=== PATIENT | female | born 1975 | race Two or more races ===

== ENCOUNTER 2017-11-04 00:34 | Observation (INO) | payer OTHER ==
[2017-11-04] MEDS ORDERED: Aspirin TAB* 325 MG PO ONE (00:53)
[2017-11-04] MEDS ORDERED: Nitroglycerin 2% OINT* 1 GM PAK TOPICAL ONE (00:55)
[2017-11-04] MEDS ORDERED: Nitroglycerin 2% OINT* 1 GM PAK ONE (01:01)
[2017-11-04 01:06] LABS: ABS Basophils 0 10^3/ul (0-0.2); ABS Eosinophils 0.1 10^3/ul (0-0.6); ABS Lymphocytes 2.9 10^3/ul (1.0-4.8); ABS Monocytes 0.6 10^3/ul (0-0.8); ABS Neutrophils 3.7 10^3/ul (1.5-7.7); ABS Nucleated RBC 0 10^3/ul; Eosinophil % 1.1 % (0-6); Hematocrit 38 % (35-47); Hemoglobin 12.5 g/dl (12.0-16.0); Mean Corpuscular HGB Conc 33 g/dl (31-36); Mean Corpuscular Hemoglobin 25 pg (27-31); Mean Corpuscular Volume 75 fL (80-97); Mean Platelet Volume 8 um3 (7.4-10.4); Nucleated Red Blood Cells % 0; Platelet Count 256 10^3/ul (150-450); Red Blood Count 5.05 10^6/ul (4.0-5.4); Red Cell Distribution Width 15 % (10.5-15); White Blood Count 7.3 10^3/ul (3.5-10.8)
[2017-11-04 01:20] LABS: INR 0.86 (0.77-1.02)
[2017-11-04 01:25] LABS: EGFR Non-African American 106.1 (>60)
[2017-11-04] MEDS ORDERED: Ketorolac INJ* 30 MG/ML 1 ML VIAL IV PUSH ONE (03:35)
[2017-11-04] MEDS ORDERED: Ondansetron INJ* 2 MG/ML VIAL IV PRN (03:36)
[2017-11-04] MEDS ORDERED: Acetaminophen TAB* 325 MG PO PRN (03:36)
[2017-11-04] MEDS ORDERED: Al Hydrox/Mg Hydrox/Simet LIQ* 30 ML UDC PO PRN (03:36)
[2017-11-04] MEDS ORDERED: Acetaminophen TAB* 325 MG ONE (03:45)
[2017-11-04] MEDS: Heparin VIAL(*) 5000 UNITS/ML VIAL (FIVE THOUSAND) SUBCUT SCH ×2 (04:59→16:18)
--- NOTE | 2017-11-04 05:24 | HP ---
CC: [facility] HISTORY AND PHYSICAL: DATE OF ADMISSION: 11/04/17 TIME OF EVALUATION: 0300. PRIMARY CARE PHYSICIAN: [facility]. CHIEF COMPLAINT: Chest pain. HISTORY OF PRESENT ILLNESS: This is a 42-year-old female with a past medical history, states that she has had chest pain for the past year, has gotten worse over the past 2 to 3 months. She has a disabled daughter which she has to do a lot of heavy lifting. It got significantly worse tonight with inability to take a deep breath, feeling short of breath and then she felt very dizzy with her whole body shaking and her arms shaking and she felt very heavy, whole body was heavy. She states now recently the past few days every time she has exertional activity, she develops chest pain. She also has a headache. No fever, no chills. No changes in her weight. No URI symptoms. No nausea, vomiting, diarrhea, abdominal pain, or urinary symptoms. Otherwise, remaining review of systems is negative. In the emergency room, the patient had labs and imaging. She was given nitro, aspirin, and Tylenol, was referred to the hospitalist service for further evaluation. Currently, she is chest pain free. PAST MEDICAL HISTORY: History of carpal tunnel release in 2016. MEDICATIONS: Ibuprofen and Tylenol as needed. ALLERGIES: No known drug allergies. SOCIAL HISTORY: The patient lives at home with her and her 5 children. Her healthcare proxy is her . No tobacco, alcohol, or illicit drug use. Code status is full code. REVIEW OF SYSTEMS: A 14-point review of systems as mentioned in the HPI, otherwise negative. FAMILY HISTORY: Mother at age 43, unknown etiology. Father at age 62 from a GI bleed. PHYSICAL EXAMINATION GENERAL: No acute distress, resting comfortably with the daughter at the bedside. VITAL SIGNS: Temp 98.7, pulse rate 73, respiratory rate 14, oxygen saturation 100% on room air, and blood pressure 140/82. HEENT: Head: Normocephalic. Pupils equal and reactive, anicteric. Oropharynx : Mucous membranes are moist. NECK: Supple. No lymphadenopathy. RESPIRATORY: Diminished breath sounds. No wheezes, rhonchi, or rales. CARDIAC: Regular rate and rhythm. Systolic murmur more prominent at the right sternal base, prominent S2. ABDOMEN: Soft, nontender, and nondistended. EXTREMITIES: No clubbing, cyanosis, or edema. +2 DPs. NEUROLOGIC: Alert and oriented x3. No focal neurologic deficits. DIAGNOSTIC STUDIES/LAB DATA: White count 7.3, hemoglobin 12.5, hematocrit 38, platelets 256. INR is 0.86. D-dimer is less than 200. Sodium 134, potassium 3.2, chloride 103, bicarb 24, BUN 14, creatinine 0.62. Troponin is 0. BNP is 13. HCG is less than 0.6. EKG shows normal sinus rhythm with no ST changes. Chest x-ray, wet read is unremarkable. ASSESSMENT AND PLAN: This is a 42-year-old female with an unremarkable past medical history, who presents with exertional chest pain. 1. Chest pain. Assessment: The patient's chest pain is with exertion, now pleuritic pain and some shortness of breath. Currently, chest pain free, could be musculoskeletal related in the setting of heavy lifting of her disabled daughter; however, concerning that even when she is not lifting heavy and mopping that she develops a chest pain, it is not reproducible on exam. Her initial workup is unremarkable. She is low risk. Plan: We will admit her to the CDU unit to rule out acute coronary syndrome, put her on a treadmill stress test in the morning, trend her troponin, check her lipid panel. Continue on aspirin. We will give her a dose of Toradol now. 2. FEN. Keep her n.p.o. in case if she cannot tolerate the treadmill stress test and either nuclear. 3. DVT prophylaxis. The patient scores moderate risk. Placed on heparin subcu t.i.d. 4. Code status. Full code. PATIENT TIME: Greater than 45 minutes spent doing the history and physical, more than half the time was spent in direct patient contact. [id number] #: [id number] BRITNI
--- NOTE | 2017-11-04 06:25 | ED ---
Josefina Welsh Thomas, scribed for Jeramy Arroyo on 11/04/17 at 0059 . HPI Chest Pain - HPI Summary HPI Summary: This patient is a 42 year old F BIBA to ED with a chief complaint of left-sided chest pain since 2100 today. The patient rates the pain 6/10 in severity. Symptom aggravated by deep breaths. Symptoms alleviated by nothing. Patient reports SOB. Patient denies coughing. - History of Current Complaint Chief Complaint: EDChestPainROMI Time Seen by Provider: 11/04/17 00:47 Hx Obtained From: Patient Onset/Duration: Started Hours Ago, Still Present Timing: Constant, Lasting Hours Current Severity: Moderate Pain Intensity: 6 Pain Scale Used: 0-10 Numeric Chest Pain Location: Left Lateral Aggravating Factor(s): Deep Breaths Alleviating Factor(s): Nothing Associated Signs and Symptoms: Positive: Other: - Patient reports SOB. Patient denies coughing. - Allergy/Home Medications Allergies/Adverse Reactions: Allergies Allergy/AdvReac Type Severity Reaction Status Date / Time No Known Allergies Allergy Verified 05/14/16 10:57 PMH/Surg Hx/FS Hx/Imm Hx Endocrine/Hematology History: Denies: Hx Diabetes Cardiovascular History: Reports: Hx Hypertension - HX OF, CURRENTLY NOT ON MEDS Denies: Hx Congestive Heart Failure History: Denies: Hx Renal Disease Musculoskeletal History: Reports: Hx Tendonitis, Other Musculoskeletal History - CARPAL TUNNEL BILAT Sensory History: Reports: Hx Contacts or Glasses - GLASSES Denies: Hx Hearing Aid Opthamlomology History: Reports: Hx Contacts or Glasses - GLASSES Neurological History: Reports: Hx Headaches - HX OF HEADACHES - Surgical History Hx Anesthesia Reactions: No Infectious Disease History: No Infectious Disease History: Denies: Traveled Outside the [place] in Last 30 Days - Family History Known Family History: Negative: Cardiac Disease - Social History Alcohol Use: None Substance Use Type: Reports: None Smoking Status (MU): Never Smoked Tobacco Review of Systems Negative: Fever Positive: Chest Pain Positive: Shortness Of Breath. Negative: Cough All Other Systems Reviewed And Are Negative: Yes Physical Exam - Summary Physical Exam Summary: Appearance: Well appearing, no pain distress Skin: warm, dry, reflects adequate perfusion Head/face: normal Eyes: EOMI, SHAMEKA ENT: normal Neck: supple, non-tender Respiratory: CTA, breath sounds present, lungs clear Chest: Tenderness over left chest Cardiovascular: RRR, pulses symmetrical Abdomen: non-tender, soft Bowel: present Musculoskeletal: normal, strength/ROM intact Neuro: normal, sensory motor intact, A&Ox3 Triage Information Reviewed: Yes Vital Signs On Initial Exam: Initial Vitals Temp Pulse Resp BP Pulse Ox 98.7 F 83 16 134/85 98 11/04/17 00:40 11/04/17 00:40 11/04/17 00:40 11/04/17 00:40 11/04/17 00:40 Vital Signs Reviewed: Yes Diagnostics - Vital Signs Vital Signs Temp Pulse Resp BP Pulse Ox 11/04/17 00:40 98.7 F 92 23 134/85 98 - Laboratory Lab Results: Lab Results 11/04/17 11/04/17 11/04/17 Range/Units 00:46 00:46 00:46 WBC 7.3 (3.5-10.8) 10^3/ul RBC 5.05 (4.0-5.4) 10^6/ul Hgb 12.5 (12.0-16.0) g/dl Hct 38 (35-47) % MCV 75 L (80-97) fL MCH 25 L (27-31) pg MCHC 33 (31-36) g/dl RDW 15 (10.5-15) % Plt Count 256 (150-450) 10^3/ul MPV 8 (7.4-10.4) um3 Neut % (Auto) 49.9 (38-83) % Lymph % (Auto) 40.0 (25-47) % [place] % (Auto) 8.4 (1-9) % Eos % (Auto) 1.1 (0-6) % Baso % (Auto) 0.6 (0-2) % Absolute Neuts (auto) 3.7 (1.5-7.7) 10^3/ul Absolute Lymphs (auto) 2.9 (1.0-4.8) 10^3/ul Absolute Monos (auto) 0.6 (0-0.8) 10^3/ul Absolute Eos (auto) 0.1 (0-0.6) 10^3/ul Absolute Basos (auto) 0 (0-0.2) 10^3/ul Absolute Nucleated RBC 0 10^3/ul Nucleated RBC % 0 INR (Anticoag Therapy) (0.77-1.02) APTT (26.0-36.3) seconds D-Dimer, Quantitative (Less Than 230) ng/mL Sodium 134 (133-145) mmol/L Potassium 3.2 L (3.5-5.0) mmol/L Chloride 103 (101-111) mmol/L Carbon Dioxide 24 (22-32) mmol/L Anion Gap 7 (2-11) mmol/L BUN 14 (6-24) mg/dL Creatinine 0.62 (0.51-0.95) mg/dL Est GFR ( Amer) 136.4 (>60) Est GFR (Non-Af Amer) 106.1 (>60) BUN/Creatinine Ratio 22.6 H (8-20) Glucose 113 H (70-100) mg/dL Calcium 9.7 (8.6-10.3) mg/dL Magnesium 1.8 L (1.9-2.7) mg/dL Total Bilirubin 0.40 (0.2-1.0) mg/dL AST 14 (13-39) U/L ALT 13 (7-52) U/L Alkaline Phosphatase 44 (34-104) U/L Troponin I 0.00 (<0.04) ng/mL B-Natriuretic Peptide 13 ( - 100) pg/mL Total Protein 7.5 (6.4-8.9) g/dL Albumin 4.3 (3.2-5.2) g/dL Globulin 3.2 (2-4) g/dL Albumin/Globulin Ratio 1.3 (1-3) Beta HCG, Quant < 0.60 mIU/mL 11/04/17 Range/Units 00:46 WBC (3.5-10.8) 10^3/ul RBC (4.0-5.4) 10^6/ul Hgb (12.0-16.0) g/dl Hct (35-47) % MCV (80-97) fL MCH (27-31) pg MCHC (31-36) g/dl RDW (10.5-15) % Plt Count (150-450) 10^3/ul MPV (7.4-10.4) um3 Neut % (Auto) (38-83) % Lymph % (Auto) (25-47) % [place] % (Auto) (1-9) % Eos % (Auto) (0-6) % Baso % (Auto) (0-2) % Absolute Neuts (auto) (1.5-7.7) 10^3/ul Absolute Lymphs (auto) (1.0-4.8) 10^3/ul Absolute Monos (auto) (0-0.8) 10^3/ul Absolute Eos (auto) (0-0.6) 10^3/ul Absolute Basos (auto) (0-0.2) 10^3/ul Absolute Nucleated RBC 10^3/ul Nucleated RBC % INR (Anticoag Therapy) 0.86 (0.77-1.02) APTT 33.6 (26.0-36.3) seconds D-Dimer, Quantitative < 200 (Less Than 230) ng/mL Sodium (133-145) mmol/L Potassium (3.5-5.0) mmol/L Chloride (101-111) mmol/L Carbon Dioxide (22-32) mmol/L Anion Gap (2-11) mmol/L BUN (6-24) mg/dL Creatinine (0.51-0.95) mg/dL Est GFR ( Amer) (>60) Est GFR (Non-Af Amer) (>60) BUN/Creatinine Ratio (8-20) Glucose (70-100) mg/dL Calcium (8.6-10.3) mg/dL Magnesium (1.9-2.7) mg/dL Total Bilirubin (0.2-1.0) mg/dL AST (13-39) U/L ALT (7-52) U/L Alkaline Phosphatase (34-104) U/L Troponin I (<0.04) ng/mL B-Natriuretic Peptide ( - 100) pg/mL Total Protein (6.4-8.9) g/dL Albumin (3.2-5.2) g/dL Globulin (2-4) g/dL Albumin/Globulin Ratio (1-3) Beta HCG, Quant mIU/mL Result Diagrams: 11/04/17 00:46 11/04/17 00:46 Lab Statement: Any lab studies that have been ordered have been reviewed, and results considered in the medical decision making process. - Radiology CXR Radiology Interpretation Completed By: ED Physician - negative - EKG 0034 Cardiac Rate: NL EKG Rhythm: Sinus Rhythm - 87 BPM EKG Interpretation: No acute changes. Chest Pain Course/Dx - Course Assessment/Plan: This patient is a 42 year old F BIBA to ED with a chief complaint of left-sided chest pain since 2100 today. Radiology included an EKG and CXR.In the ED course the patient was given aspirin and nitroglycerin. Bloodwork was obtained. The patient is diagnosed with CP r/o IN. The patient will be admitted by Dr. Negro. - Chest Pain Differential Diagnosis/HQI/PQRI: Acute IN, ACS, Angina, CHF, Chest Wall, Lower Respiratory Infection, Pulmonary Edema - Diagnoses Provider Diagnoses: Chest pain, rule out acute myocardial infarction - Provider Notifications Discussed Care Of Patient With: Lori Negro Time Discussed With Above Provider: 02:55 Instructed by Provider To: Will See In ED - Dr. Negro will see the pt in the ED. Discharge - Discharge Plan Condition: Stable Disposition: ADMITTED TO [facility] documentation as recorded by the Josefina hardwick Thomas accurately reflects the service I personally performed and the decisions made by Cruz bruno Emmanuel.
[2017-11-04] MEDS ORDERED: KCL 20 MEQ/100 ML IVPREMIX* 20 MEQ/100 ML BAG IV SCH (08:00)
--- NOTE | 2017-11-04 08:01 | RAD ---
HISTORY: Chest pain COMPARISONS: CTA dated November 17, 2013 VIEWS: 1: frontal portable view of the chest at 1:19 AM FINDINGS: LINES AND TUBES: None. CARDIOMEDIASTINAL SILHOUETTE: The cardiac silhouette is mildly enlarged, stable from the previous examination. The cardiomediastinal silhouette is otherwise normal for portable technique. PLEURA: The costophrenic angles are sharp. No pleural abnormalities are noted. LUNG PARENCHYMA: The lungs are clear. ABDOMEN: The upper abdomen is clear. There is no subphrenic gas. BONES AND SOFT TISSUES: No bone or soft tissue abnormalities are noted. IMPRESSION: STABLE MILD CARDIOMEGALY. NO ACTIVE CARDIOPULMONARY DISEASE.
[2017-11-04] MEDS: KCL premix 10 MEQ/50 ML IVPREMIX x 4 RUNS IV SCH ×3 (08:53→16:17)
[2017-11-04] MEDS ORDERED: Aspirin EC Low Dose* 81 MG TAB.EC PO SCH (09:00)
--- NOTE | 2017-11-04 12:47 | RAD ---
HISTORY: Chest pain, shortness of breath COMPARISONS: None TECHNIQUE: A 1 day stress/rest myocardial perfusion study was performed, with exercise stress. The exercise portion was performed using the Hugh protocol, for a total METs of 10.1. The stress portion was monitored by Dr. Samson. Gated SPECT imaging was performed, with CT-based attenuation correction DOSE: Stress: Technetium 99m tetrofosmin, 25.05 millicuries, injected at 11:24 AM on November 04, 2017 Rest: Technetium 99m tetrofosmin, 10.12 millicuries, injected at 8:50 AM on November 04, 2017 Pharmacologic agent: None FINDINGS: CARDIAC MONITORING: Peak heart rate of 157 bpm, 88% of predicted EF: 68% TID: 1.1 MOTION: Normal motion, with normal wall thickening. PERFUSION: There is moderate reversible defect of the anterior wall. OTHER: None IMPRESSION: MODERATE REVERSIBLE DEFECT OF THE INFERIOR WALL SUGGESTIVE OF AN AREA OF ISCHEMIA ASSESSMENT: INTERMEDIATE RISK. Based on imaging criteria from ACC/AHA 2002. Guideline Update for the Management of Patient's with Chronic Stable Angina, table 23. Noninvasive Risk Stratification. CPT II Codes: 3315Q3T
[2017-11-04 15:57] VITALS: BP 120/67
--- NOTE | 2017-11-04 21:12 | CONS ---
CC: [facility] * CARDIOLOGY CONSULTATION: DATE OF CONSULT: 11/04/17 INDICATION FOR CONSULTATION: Chest pain. HISTORY OF PRESENT ILLNESS: The patient is a 42-year-old female with little past medical history, who was admitted to the hospital with chest discomfort. The patient states that for the past couple of months, she has noticed increased discomfort in her chest with exertion. The patient does take care of her disabled daughter who is 6 years old. She has to lift and carry this child throughout the day. The patient states that when she lifts her daughter, she has some shortness of breath and feels short of breath. Yesterday, she felt dizzy without exertion and decided to come to the emergency room. In the emergency room, her EKG was normal. Her troponin level was normal. She ruled out for a myocardial infarction overnight. Today, she underwent an exercise nuclear stress test at which time she exercised for a total of 7 minutes. She had no chest pain, no EKG changes. Her nuclear images demonstrate a small to moderate sized reversible defect to her anterior wall, which significantly improves with attenuation correction. She does have a small residual reversible defect to her anterior wall on attenuation correction. There is a significant amount of breast attenuation on the raw images. Her LV function is normal at 68%. There is no focal wall motion abnormalities. PAST MEDICAL HISTORY: Unremarkable. PAST SURGICAL HISTORY: Carpal tunnel release. MEDICATIONS: [id number] ibuprofen. ALLERGIES: No known drug allergies. SOCIAL HISTORY: She lives with her and 5 children. She works as a high reach operator. She denies any tobacco or alcohol use. FAMILY HISTORY: Her mother at 43 of unclear causes. Father at 62 of GI bleed. PHYSICAL EXAM: Height is 5 feet 1 inch, weight is 156 pounds. Temperature 98, heart rate 70, blood pressure 112/78, respiratory rate is 17, oxygen saturation 98% on room air. Sclerae anicteric. Oropharynx is pink without erythema. Carotids are 2+ without bruits. JVD is normal. Thyroid is normal. Cardiac Exam: S1, S2 without any murmurs, rubs, or gallops. Lungs are clear to auscultation bilaterally. There is no dullness to percussion. Abdomen is soft , nontender, nondistended with normoactive bowel sounds. Extremities show no edema. She has 2+ pulses throughout. The patient is awake, alert, and oriented. She moves all 4 extremities equally. DIAGNOSTIC STUDIES/LAB DATA: CBC within normal limits. Chemistries within normal limits. Her potassium level is a little bit low at 3.2. AST and ALT are within normal limits. Troponins are negative x2. HDL of 42, LDL of 75. IMPRESSION: This is a 42-year-old female who was admitted to the hospital with atypical chest pain and shortness of breath with exertion. The patient underwent an exercise nuclear stress test. She exercised for 7.5 minutes with no EKG changes and no chest pain. Her nuclear images show a reversible defect to her anterior wall, which almost completely corrects with attenuation correction. There is still a small area of potential ischemia to her anterior wall on attenuation correction. Given the fact that the patient is 42 years old has no significant cardiac risk factors and has a normal exercise stress test. I think the patient is a low risk for coronary artery disease or acute coronary events. For now, my recommendation is to discharge the patient home. She will get an aspirin a day. I will see the patient in followup in 3 to 4 weeks in my office. I did give the patient my card and asked her to call me if her symptoms progress. [id number]/[facility] #: [id number] BRITNI
--- NOTE | 2017-11-05 03:54 | DS ---
CC: Dr. Kirstie Prabhakar; Dr. Samson * DISCHARGE SUMMARY: DATE OF ADMISSION: 11/04/17 DATE OF DISCHARGE: 11/04/17 PRIMARY CARE PROVIDER: Dr. Kirstie Prabhakar. DISCHARGE DIAGNOSIS: Chest pain with intermediate probability cardiac stress test documented on 11/04/17. MEDICATIONS AT DISCHARGE: Include: 1. Aspirin 81 mg daily. 2. Acetaminophen on a p.r.n. basis. CONSULTATIONS DURING THE HOSPITAL STAY: Included Dr. Samson from Cardiology. FOLLOWUP APPOINTMENTS AT DISCHARGE: The patient is recommended to follow up with her primary care provider on 11/05/17 at 10:20 a.m. The patient also recommended with Dr. Samson in approximately 1 month. LABORATORY DATA AND STUDIES PERFORMED DURING THE HOSPITAL STAY: Included: On 11/04/17, triglycerides of 64, cholesterol total of 131, LDL of 75, HDL of 42. D -dimer was below 200. Nuclear medicine cardiac stress test documented on 11/04/17, impression: "Intermediate risk. There was moderate reversible defect of the inferior wall suggestive of an area of ischemia." The patient's EF was noted to be 68%. HOSPITALIZATION COURSE: Ms. Sherman is a 42-year-old female who has a disabled 6- year- old daughter whom she needs to carry a lot. Her daughter is fully disabled and has a PEG tube in place for feeding. The patient presented complaining of chest pain and shortness of breath that appeared more pleuritic and exercise related. She was placed on overnight observation on 11/04/17. Subsequently, her troponins continued to be negative and EKG was unchanged. Her cardiac stress test, which was an exercise cardiac stress test was good with no EKG evidence of ischemia and no reproducible chest pain with exercise. Nevertheless, her nuclear images showed defect inferiorly despite correction for breast attenuation. Dr. Barbosa saw the patient in consultation and stated although the patient's chest pain appears to be noncardiac related, she does have reversible defect in the inferior wall. At that point, Dr. Barbosa recommended baby aspirin to be taken on a daily basis and for the patient to follow up with Cardiology in approximately 1 month. PHYSICAL EXAMINATION: At the time of discharge, blood pressure of 120/67, heart rate of 73 and regular, respiratory rate 20, oxygen saturation 99% on room air, temperature 97.9. General: The patient is a very pleasant 42-year- old female, who is in no acute distress. Alert, awake, and oriented x3. HEENT : Head: Atraumatic, normocephalic. Eyes: Pupils are equal, reactive to light and accommodation. Oropharynx is clear. Mucosa moist. Neck: Supple. No JVD. No bruits bilaterally. Cardiovascular: Regular rate and rhythm. No murmur. Respiratory: Clear to auscultation bilaterally. Abdomen: Soft, nontender. Bowel sounds are present in all 4 quadrants. Extremities: There is no edema. Pulses are +2 bilaterally. No clubbing or cyanosis. Neuro Evaluation: Speech is clear. Cranial nerves II through XII grossly intact. Motor strength is 5/5 bilaterally. Please note that this is a short summary of the patient's hospitalization. Please refer to further medical records for details. [id number]/[facility] #: [id number] MTDD
== END 2017-11-04 16:19 | disposition home or self-care (01) ==
LOC: ED 00:34 → MEDTELE 03:36
PROVIDERS: ADMIT Pediatrics; ATTEND Internal Medicine
DX: R07.9 Chest pain, unspecified (principal); Z86.79 Personal history of other diseases of the circulatory system; R06.02 Shortness of breath; Z79.82 Long term (current) use of aspirin
CPT/HCPCS: 36415; 71045; 78452; 80053; 80061; 83735; 83880; 84484; 84702; 85025; 85379; 85610; 85730; 93005; 93017; 96374; 99284; A9270-GY; A9502; G0378; J1644; J3480

== ENCOUNTER 2019-01-04 08:20 | Inpatient (IN) | payer OTHER ==
[2019-01-04] MEDS ORDERED: Lactated Ringers 1000 ML Bag* 1,000 ML IV ONE (09:08)
[2019-01-04] MEDS ORDERED: Buffered Lidocaine 1% SYRIN* 1 ML/SYRINGE INTRADERM ONE (09:08)
--- NOTE | 2019-01-04 09:17 | HP ---
General Information - Reason for Visit Pt presents at 39+2 wks with h/o three [place]com[place] and more recent with shoulder dystocial at [facility]. That baby was 9lb 2oz, 1 to 1.5 lbs bigger than her previous ones. Most recent EFW at 35 wks showed about 60th percentile, so likely smaller than the last baby. No complaints today. Translation service used today for history and discussion regarding induction. - General Information Maternal Age: 37 Grav: 4 Para: 3 SAB: 0 IEA: 0 Estimated Due Date: 09/28/13 Determined By: Early Ultrasound Gestational Age in Weeks/Days: 39+2 Maternal Blood Type and Rh: O Positive - Results this Serology/RPR Result: Non-Reactive Rubella Result: Immune HBsAg Result: Negative HIV Result: Negative GBS Culture Result: Negative Past Medical History Delivery History: Hx Complicated Vaginal Delivery - shoulder dystocia x1, See Records Pertinent Past Medical History: See Records - none Pertinent Past Surgical History: See Records - carpal tunnel sx Pertinent Family History: See Records - two children with Hb e trait - Antepartal Records Antepartal Records: Reviewed, Complicated by: - h/o SD Review of Systems Constitutional: Comfortable CV Complaint: No Respiratory: Shortness of Breath: No Gastrointestinal: No Nausea/Vomiting, Normal Bowel Movement Genitourinary: No Dysuria, No Bleeding, No Leaking Fluid Musculoskeletal: No Complaint Neurological: No Visual Changes, Headache - intermittent over the past two weeks , takes tylenol (7am today) 500mg Normal BPs in office Movement: Normal Exam Allergies/Adverse Reactions: Allergies No Known Allergies Allergy (Verified 05/14/16 10:57) 140/84, repeat pending - Measurements Pre- Weight: 160 lb - Exam Breast: Breast Exam Deferred Heart: Normal Rhythm/Heart Sounds HEENT: No Significant Findings Lungs: Clear Bilaterally Rectal: Rectal Exam Deferred - Abdominal Exam Abdomen Exam: Non-Tender, Fundal Height Consistent with Dates - Ultrasound/Biophysical Profile Ultrasound Status: Not Done Targeted Exam Findings Estimated Weight: 8 lb Cervical Exam: 2cm Effacement: 50% Station: Ballotable, -2 Presenting Part: Vertex Membrane Status: Intact Bleeding/Discharge: None EFM Findings - External Monitor Findings Baseline Heart Rate: 130 External Monitor Findings: Accelerations Present, No Pattern of Variable or Late Decelerations, Variability Moderate Contractions: Irregular, Mild Contraction Frequency: rare Assessment/Plan - Assessment 39 wks with with AMA and h/o shoulder dystocia in most recent delivery, a baby that was much bigger than three prior. Here for induction of labor. Considering h/o SVDs and favorable cervix, will start pitocin. This was discussed with room attendants present on iPad. Pt considering epidural if needed, but she was too numb with the last one so pushing was difficult. One mildly elevated BP on presentation. Will continue to watch closely. Routine labs and IV today, including CMP and uric acid. Very reassuring status. - Plan Plan: Induction, Admit - Anticipate Vaginal Delivery - Date/Time of Admission Date of Admission: 01/04/19 Time of Admission: 09:00
[2019-01-04 09:59] LABS: ABS Basophils 0 10^3/ul (0-0.2); ABS Eosinophils 0 10^3/ul (0-0.6); ABS Lymphocytes 1.8 10^3/ul (1.0-4.8); ABS Monocytes 0.5 10^3/ul (0-0.8); ABS Neutrophils 5.2 10^3/ul (1.5-7.7); ABS Nucleated RBC 0 10^3/ul; Eosinophil % 0.4 %; Hematocrit 37 % (33-41); Hemoglobin 12.4 g/dL (12.0-16.0); Lymphocyte % 23.6 %; Mean Corpuscular HGB Conc 34 g/dL (31-36); Mean Corpuscular Hemoglobin 29 pg (27-31); Mean Corpuscular Volume 87 fL (80-97); Mean Platelet Volume 8.5 fL (7.4-10.4); Nucleated Red Blood Cells % 0.1; Platelet Count 150 10^3/uL (150-450); Red Blood Count 4.24 10^6 /uL (3.70-4.87); Red Cell Distribution Width 15 % (10.5-15); White Blood Count 7.6 10^3/uL (3.5-10.8)
[2019-01-04] MEDS ORDERED: Oxytocin in LR* 20 UNITS/1,000 ML BAG IVPB SCH (10:00)
[2019-01-04] MEDS ORDERED: Lactated Ringers 1000 ML Bag* 1,000 ML IV SCH ×2 (10:00→23:45)
[2019-01-04 10:19] LABS: Albumin 3.4 g/dL (3.2-5.2); Albumin/Globulin Ratio 1.2 (1-3); BUN/Creatinine Ratio 17.6 (8-20); Calcium 8.6 mg/dL (8.6-10.3); EGFR African American 255.5 (>60); EGFR Non-African American 211.2 (>60); Globulin 2.9 g/dL (2-4); Potassium 3.9 mmol/L (3.5-5.0); Total Bilirubin 0.4 mg/dL (0.2-1.0); Total Protein 6.3 g/dL (6.4-8.9); Uric Acid 4.7 mg/dL (2.3-6.6)
[2019-01-04] MEDS ORDERED: Acetaminophen TAB* 325 MG PO PRN ×2 (16:35→23:31)
--- NOTE | 2019-01-04 23:30 | PROCNOTE ---
[facility] OB: Delivery Note - Nursery Level of Nursery: Regular/Bedside - Perineum Perineal Injury: None/Intact Perineal Repair: None - Events Delivery Events of Note: Pitocin During Labor - Additional Delivery Notes Additional Delivery Notes: Pt presented for IOL at 39 wks for AMA and h/o shoulder dystocia. IV pitocin given and AROM performed at 3/75%. She progressed steadily to about 8cm with a large swollen lip of cervix which seemed to be related to her laboring while on knees and leaning forward. The cervix resolved when she laid on her side and back. Pt then pushed for about an hour, although the majority of the descent was in the last 5 min. Head delivered in a controlled fashion. Shoulders were tight but delivered with gentle traction. They were noted to be transverse. Body then delivered without difficulty. with good tone, cried immediately. Cord doubly clamped and cut by sister. Cord blood collected. IV pitocin increased. Placenta delivered spontaneously and intact. Brisk bleeding just before placenta, but stopped quickly. Fundus very firm. No lacerations present.
[2019-01-04] MEDS ORDERED: Dibucaine 1% 28.35 GM TUBE PR PRN (23:31)
[2019-01-04] MEDS ORDERED: Witch Hazel PAD* JAR TOPICAL PRN (23:31)
[2019-01-05] MEDS: Ibuprofen TAB* 600 MG PO PRN ×4 (01:34→21:07)
[2019-01-05] MEDS: Docusate CAP* 100 MG PO SCH ×3 (08:08→21:07)
[2019-01-05] MEDS ORDERED: Simethicone TAB* 80 MG TAB.CHEW PO SCH (08:30)
[2019-01-05] MEDS ORDERED: Ferrous Gluconate TAB* 324 MG TAB PO SCH (09:00)
[2019-01-05 09:06] LABS: ABS Basophils 0.1 10^3/ul (0-0.2); ABS Eosinophils 0 10^3/ul (0-0.6); ABS Lymphocytes 2.3 10^3/ul (1.0-4.8); ABS Monocytes 0.9 10^3/ul (0-0.8); ABS Neutrophils 11.4 10^3/ul (1.5-7.7); ABS Nucleated RBC 0 10^3/ul; Eosinophil % 0.1 %; Hematocrit 30 % (33-41); Hemoglobin 10.4 g/dL (12.0-16.0); Lymphocyte % 15.7 %; Mean Corpuscular HGB Conc 35 g/dL (31-36); Mean Corpuscular Hemoglobin 30 pg (27-31); Mean Corpuscular Volume 86 fL (80-97); Mean Platelet Volume 8.1 fL (7.4-10.4); Nucleated Red Blood Cells % 0; Platelet Count 165 10^3/uL (150-450); Red Blood Count 3.43 10^6 /uL (3.70-4.87); Red Cell Distribution Width 14 % (10.5-15); White Blood Count 14.7 10^3/uL (3.5-10.8)
[2019-01-06] MEDS: Ibuprofen TAB* 600 MG PO PRN (05:05)
[2019-01-06 07:46] VITALS: BP 132/79
[2019-01-06] MEDS: Docusate CAP* 100 MG PO SCH (10:12)
== END 2019-01-06 12:18 | disposition home or self-care (01) | DRG 560 ==
LOC: MCHOBOUT 08:20 → MCHOB 09:08
PROVIDERS: ADMIT Obstetrics & Gynecology; ATTEND Obstetrics & Gynecology
PROC: 10E0XZZ Delivery of Products of Conception, External Approach (ICD-10-PCS; principal; 2019-01-04)
PROC: 3E033VJ Introduction of Other Hormone into Peripheral Vein, Percutaneous Approach (ICD-10-PCS; 2019-01-04)
PROC: 10907ZC Drainage of Amniotic Fluid, Therapeutic from Products of Conception, Via Natural or Artificial Opening (ICD-10-PCS; 2019-01-04)
DX: O75.89 Other specified complications of labor and delivery (principal); Z37.0 Single live birth; Z3A.39 39 weeks gestation of pregnancy
CPT/HCPCS: 36415; 80053; 84550; 85025; 86850; 86900; 86901; A9270-GY